=== PATIENT | male | born 1995 | race Caucasian/White ===

== ENCOUNTER 2019-03-15 16:32 | Emergency (ER) | payer MEDICAID, OTHER ==
[~2019-03-15] VITALS: Ht 177.8 cm; Wt 121.6 kg
--- NOTE | 2019-03-15 18:00 | NUR ---
Patient discharged to home in stable conditon. Written and verbal after care instructions given. Patient verbalizes understanding of instructions.PT WALKS IN STEADY GAITS.
[2019-03-19 05:05] LABS: *GC NAA Negative (Negative); *TRIC.VAG. NAA Negative (Negative)
== END 2019-03-15 18:02 | disposition home or self-care (01) ==
LOC: ER 16:32
DX: N52.9 Male erectile dysfunction, unspecified (principal)
CPT/HCPCS: 87491; A4663

== ENCOUNTER 2019-05-01 15:00 | Emergency (ER) | payer SELFPAY ==
--- NOTE | 2019-05-01 15:15 | NUR ---
PT WAS CALLED IN FOR TRIAGE. NO ANSWER. PT IS NOT IN WAITING ROOM.
--- NOTE | 2019-05-01 15:36 | NUR ---
PT WAS CALLED IN FOR TRIAGE. NO RESPONSE. PT LEFT WITHOUT BEEN TRIAGED.
== END 2019-05-01 16:22 | disposition left against medical advice (07) ==
LOC: ER 15:00
DX: Z53.21 Procedure and treatment not carried out due to patient leaving prior to being seen by health care provider (principal)

== ENCOUNTER 2019-06-28 15:55 | Emergency (ER) | payer OTHER ==
[~2019-06-28] VITALS: Ht 175.3 cm; Wt 112.0 kg
--- NOTE | 2019-06-28 17:00 | NUR ---
patient walked in with sore throat for a week. denied respiratory difficulty or swallowing difficulty. feeling like somethins stuck in his throat. examed by physician
--- NOTE | 2019-06-28 17:25 | NUR ---
patient is alert and oriented, informed to visit ER if sx worsens and visit PMD [facility]. vss. cleared by Dr Chow
== END 2019-06-28 17:20 | disposition home or self-care (01) ==
LOC: ER 15:57
DX: J02.8 Acute pharyngitis due to other specified organisms (principal); B97.89 Other viral agents as the cause of diseases classified elsewhere
CPT/HCPCS: A4663

== ENCOUNTER 2019-09-13 15:41 | Emergency (ER) | payer OTHER ==
[~2019-09-13] VITALS: Ht 177.8 cm; Wt 113.4 kg
--- NOTE | 2019-09-13 16:11 | NUR ---
Patient discharged to home in stable conditon. Written and verbal after care instructions given. Patient verbalizes understanding of instructions. ALL BELONGINGS W/ PT. PT SELF-AMBULATED W/O DIFFICULTY.
[2019-09-13 16:12] VITALS: BP 109/66
== END 2019-09-13 16:12 | disposition home or self-care (01) ==
LOC: ER 15:41
DX: L30.9 Dermatitis, unspecified (principal); Z76.0 Encounter for issue of repeat prescription
CPT/HCPCS: A4663

== ENCOUNTER 2023-10-25 07:35 | Emergency (ER) | payer MEDICAID, OTHER ==
[~2023-10-25] VITALS: Ht 175.3 cm; Wt 119.7 kg
[2023-10-25] MEDS ORDERED: CLINDAMYCIN HCL 300 MG CAPSULE ONE (08:53)
[2023-10-25] MEDS ORDERED: MUPI22OI2 TP (08:53)
[2023-10-25] MEDS ORDERED: CLIN300C12 PO (08:53)
[2023-10-25] MEDS ORDERED: CLINDAMYCIN HCL 150 MG CAPSULE PO ONE (09:00)
[2023-10-25 09:29] VITALS: BP 118/63; TEMP 98.7; O2SAT 99
== END 2023-10-25 09:30 | disposition home or self-care (01) ==
LOC: ER 07:35
DX: L03.115 Cellulitis of right lower limb (principal); B95.62 Methicillin resistant Staphylococcus aureus infection as the cause of diseases classified elsewhere; Z79.899 Other long term (current) drug therapy
CPT/HCPCS: A4606; A4663

== ENCOUNTER 2024-12-25 22:03 | Emergency (ER) | payer MEDICAID ==
[~2024-12-25] VITALS: Ht 175.3 cm; Wt 99.8 kg
[~2024-12-25 22:03] MED LIST: CLIN300C12 PO; MUPI22OI2 TP
[2024-12-25 23:26] LABS: BASOPHILS % (AUTO) 0.4 % (0.0-2.0); EOSINOPHILS % (AUTO) 0.2 % (0.0-7.0); HEMATOCRIT 49.4 % (36.7-47.1); HEMOGLOBIN 16.3 g/dL (12.5-16.3); LYMPHOCYTES # (AUTO) 2.2 K/uL (0.8-4.8); LYMPHOCYTES % (AUTO) 19.5 % (20.5-51.5); MEAN CORPUSCULAR HEMOGLOBIN 27.7 uug (23.8-33.4); MEAN CORPUSCULAR HGB CONC 33 g/dL (32.5-36.3); MEAN CORPUSCULAR VOLUME 83.8 fL (73.0-96.2); MONOCYTES # (AUTO) 0.9 K/uL (0.1-1.30); MONOCYTES % (AUTO) 8.3 % (0.0-11.0); NEUTROPHILS % (AUTO) 71.6 % (38.5-71.5); PLATELET COUNT (AUTO) 207 K/uL (152-348); RED CELL DISTRIBUTION WIDTH 13.9 % (12.1-16.2); WHITE BLOOD COUNT (AUTO) 11.1 K/uL (3.6-10.2)
[2024-12-25 23:32] LABS: DIFFERENTIAL COMMENT 1
[2024-12-25 23:36] LABS: CALCIUM 9.6 mg/dL (8.5-10.1); POTASSIUM 4.6 mmol/L (3.5-5.1)
[2024-12-26 00:12] VITALS: BP 124/74; TEMP 98.2; O2SAT 99
== END 2024-12-26 00:12 | disposition home or self-care (01) ==
LOC: ER 22:10
DX: R07.9 Chest pain, unspecified (principal); R06.02 Shortness of breath; K21.9 Gastro-esophageal reflux disease without esophagitis; Z87.2 Personal history of diseases of the skin and subcutaneous tissue
CPT/HCPCS: 36415; 71045; 84443; 85025; A4606; A4663

== ENCOUNTER 2025-07-07 08:41 | Emergency (ER) | payer MEDICAID ==
[~2025-07-07] VITALS: Ht 175.3 cm; Wt 99.8 kg
[2025-07-07 08:47] VITALS: BP 121/71
[2025-07-07] MEDS ORDERED: PERM60CR19 TP (09:05)
[2025-07-07] MEDS ORDERED: CIPR2.5D14 EACHEYE (09:05)
[2025-07-07 09:09] VITALS: BP 119/71; O2SAT 98
== END 2025-07-07 09:09 | disposition home or self-care (01) ==
LOC: ER 08:41
DX: B30.9 Viral conjunctivitis, unspecified (principal); L29.9 Pruritus, unspecified; Z86.16 Personal history of COVID-19
CPT/HCPCS: A4606; A4663